=== PATIENT | male | born 1945 | race Caucasian/White ===

== ENCOUNTER 2021-10-21 17:12 | Inpatient (IN) | payer OTHER ==
[~2021-10-21] VITALS: Ht 167.6 cm; Wt 79.5 kg
[2021-10-21 17:58] LABS: BASOPHILS % 0.5 % (0.0-2.0); EOSINOPHILS % 5.3 % (0.0-5.0); HEMATOCRIT. 44.7 % (42.0-52.0); HEMOGLOBIN. 15.5 g/dL (14.0-18.0); LYMPHOCYTES % 27.6 % (20.0-50.0); MEAN CORPUSCULAR HEMOGLOBIN 30.8 pg (28.0-32.0); MEAN CORPUSCULAR VOLUME 89.1 fL (80.0-94.0); MONOCYTES % 5.6 % (2.0-8.0); PLATELET 196 x1000/uL (130-400); RED BLOOD CELL COUNT 5.02 mill/uL (4.7-6.1); RED CELL DISTRIBUTION WIDTH 12.7 % (11.6-14.6)
[2021-10-21 18:03] LABS: CHLORIDE 106 mEq/L (98-107)
[2021-10-22 09:00] VITALS: BP 133/76
[2021-10-22] MEDS ORDERED: LISINOPRIL 20MG TABLET PO SCH (09:00)
[2021-10-22 14:07] VITALS: BP 133/76
== END 2021-10-22 15:45 | disposition home or self-care (01) | DRG 305 ==
LOC: ER 17:12 → 8WST 10-22 01:46
PROVIDERS: ADMIT Internal Medicine Pulmonary Disease; ATTEND Internal Medicine Pulmonary Disease
DX: I16.0 Hypertensive urgency (principal); I10 Essential (primary) hypertension; Z20.822 Contact with and (suspected) exposure to COVID-19
CPT/HCPCS: 36415; 71045; 80053; 83880; 84484; 85025; 87426; 93005; 99285

== ENCOUNTER 2024-10-16 17:05 | Emergency (ER) | payer OTHER ==
[~2024-10-16] VITALS: Ht 167.6 cm; Wt 78.2 kg
[2024-10-16 17:14] VITALS: O2SAT 98
[2024-10-16] MEDS ORDERED: MECLIZINE 25MG TABLET PO ONE (18:00)
[2024-10-16 18:11] LABS: BASOPHILS % 0.4 % (0.0-2.0); EOSINOPHILS % 0.7 % (0.0-5.0); HEMATOCRIT. 47.6 % (42.0-52.0); HEMOGLOBIN. 16.6 g/dL (14.0-18.0); LYMPHOCYTES % 26.3 % (20.0-50.0); MEAN CORPUSCULAR HEMOGLOBIN 31.2 pg (28.0-32.0); MEAN CORPUSCULAR HGB CONC 34.9 g/dL (31.0-37.0); MEAN CORPUSCULAR VOLUME 89.5 fL (80.0-94.0); MEAN PLATELET VOLUME 8.6 fl (7.4-10.4); MONOCYTES % 5.6 % (2.0-8.0); PLATELET 316 x1000/uL (130-400); RED BLOOD CELL COUNT 5.32 mill/uL (4.7-6.1); RED CELL DISTRIBUTION WIDTH 13.1 % (11.6-14.6); WHITE BLOOD COUNT 7.3 x1000/uL (4.5-11.0)
[2024-10-16 18:19] LABS: CARBON DIOXIDE 28 mEq/L (21-32); CHLORIDE 100 mEq/L (98-107); POTASSIUM 4.2 mEq/L (3.5-5.1); SODIUM 140 mEq/L (136-145)
[2024-10-16 18:20] LABS: CALCIUM 10.5 mg/dL (8.7-10.4)
[2024-10-16 18:24] LABS: CREATININE 1.1 mg/dL (0.6-1.3); GLUCOSE 220 mg/dL (70-105); TROPONIN I HIGH SENSITIVITY 7 ng/L (3.0-53)
[2024-10-16 18:25] LABS: UREA NITROGEN BLOOD 17 mg/dL (9-23)
[2024-10-16 18:26] LABS: ALANINE AMINOTRANSFERASE 33 IU/L (10-49); ALBUMIN 4.9 g/dL (3.2-4.8); ASPARTATE AMINOTRANSFERASE 24 IU/L (<34)
[2024-10-16 18:27] LABS: BILIRUBIN TOTAL 0.7 mg/dL (0.1-1.0)
[2024-10-16] MEDS: MECLIZINE 25MG TABLET PO NR (18:28)
[2024-10-16] MEDS ORDERED: AMLODIPINE 10MG TABLET PO ONE (20:15)
[2024-10-16] MEDS: AMLODIPINE 5MG TABLET PO NR (20:15)
[2024-10-16 21:28] VITALS: BP 170/82; PULSE 56; RESP 16; TEMP 36.7; O2SAT 98
== END 2024-10-16 22:01 | disposition home or self-care (01) ==
LOC: ER 17:18
DX: I16.0 Hypertensive urgency (principal); I10 Essential (primary) hypertension; Z98.890 Other specified postprocedural states
CPT/HCPCS: 99285; 70450; 71045; 80053; 85025; 84484; 36415; 93005; J8597

== ENCOUNTER 2025-01-03 09:45 | Inpatient (IN) | payer OTHER, MEDICARE ==
[~2025-01-03] VITALS: Ht 172.7 cm; Wt 80.3 kg
[2025-01-03] MEDS: VANCOMYCIN 1000MG/250ML 250 ML IV STA (09:58)
[2025-01-03] MEDS: LEVETIRACETAM 500MG PREMIX 100 ML IV ONE (09:58)
[2025-01-03] MEDS: LACTATED RINGERS 2,000 ML IV SCH (09:58)
[2025-01-03] MEDS ORDERED: VANCOMYCIN 1000MG/250ML 250 ML IV SCH (10:00)
[2025-01-03] MEDS ORDERED: LEVETIRACETAM 500MG PREMIX 100 ML IV ONE (10:00)
[2025-01-03] MEDS ORDERED: CEFEPIME 2GM IN DEXT 5% 100ML IV ONE (10:00)
[2025-01-03 10:04] LABS: BASOPHILS % 0.4 % (0.0-2.0); EOSINOPHILS % 0.3 % (0.0-5.0); HEMATOCRIT. 48.8 % (42.0-52.0); HEMOGLOBIN. 16.7 g/dL (14.0-18.0); LYMPHOCYTES % 28.8 % (20.0-50.0); MEAN CORPUSCULAR HEMOGLOBIN 30.7 pg (28.0-32.0); MEAN CORPUSCULAR HGB CONC 34.2 g/dL (31.0-37.0); MEAN CORPUSCULAR VOLUME 89.8 fL (80.0-94.0); MEAN PLATELET VOLUME 8.6 fl (7.4-10.4); MONOCYTES % 14.2 % (2.0-8.0); NEUTROPHILS % 56.3 % (40.0-76.0); PLATELET 329 x1000/uL (130-400); RED BLOOD CELL COUNT 5.43 mill/uL (4.7-6.1); RED CELL DISTRIBUTION WIDTH 15.1 % (11.6-14.6); WHITE BLOOD COUNT 15.8 x1000/uL (4.5-11.0)
[2025-01-03] MEDS: CEFEPIME 2GM/50ML DUPLEX 50 ML IV NR (10:47)
[2025-01-03] MEDS: LEVETIRACETAM 500MG PREMIX 100 ML IV NR (11:05)
[2025-01-03 11:10] LABS: CARBON DIOXIDE 21 mEq/L (21-32); CHLORIDE 101 mEq/L (98-107); POTASSIUM 3.9 mEq/L (3.5-5.1); SODIUM 139 mEq/L (136-145)
[2025-01-03 11:11] LABS: CALCIUM 8.6 mg/dL (8.7-10.4)
[2025-01-03 11:16] LABS: CREATININE 1.2 mg/dL (0.6-1.3); GLUCOSE 224 mg/dL (70-105); TROPONIN I HIGH SENSITIVITY 9 ng/L (3.0-53); UREA NITROGEN BLOOD 14 mg/dL (9-23)
[2025-01-03 11:17] LABS: ALANINE AMINOTRANSFERASE 25 IU/L (10-49); ASPARTATE AMINOTRANSFERASE 19 IU/L (<34)
[2025-01-03 11:18] LABS: BILIRUBIN DIRECT 0.3 mg/dL (<=3.0); BILIRUBIN TOTAL 0.8 mg/dL (0.1-1.0); PROTEIN TOTAL 6.3 g/dL (6.0-8.3)
[2025-01-03 11:20] LABS: INR 1.1; PROTHROMBIN TIME 11.9 sec (9.6-11.0)
[2025-01-03] MEDS: VANCOMYCIN 1GM/200ML PMX (BAXTER) IV NR ×2 (11:30→17:47)
[2025-01-03 11:47] LABS: LACTIC ACID 9.9 mmol/L (0.4-2.0)
[2025-01-03] MEDS ORDERED: ACETAMINOPHEN 325MG TABLET PO ONE (12:15)
[2025-01-03] MEDS ORDERED: VANCOMYCIN 1GM/200ML PMX (BAXTER) IV NR (12:15)
[2025-01-03] MEDS: LACTATED RINGERS 100 ML IV SCH (12:24)
[2025-01-03] MEDS: ACETAMINOPHEN 1000MG/100ML 100 ML IV ONE (12:51)
[2025-01-03 13:00] VITALS: BP 143/65; PULSE 64; RESP 20; TEMP 37.8
[2025-01-03] MEDS: AMLODIPINE 10MG TABLET PO SCH (13:00)
[2025-01-03] MEDS ORDERED: ONDANSETRON HCL 4MG/2ML INJ IV PRN (13:00)
[2025-01-03] MEDS ORDERED: LORAZEPAM 2MG/ML UD SYRINGE IV PRN (13:00)
[2025-01-03 13:23] LABS: TROPONIN I HIGH SENSITIVITY 20 ng/L (3.0-53)
[2025-01-03 14:00] VITALS: BP 143/77; PULSE 76; RESP 24; O2SAT 99
[2025-01-03 15:15] LABS: BG BASE EXCESS 1.6 mmol/L (-2.0-3.0); BG CARBOXYHEMOGLOBIN 0.2 % (0.5-1.5); BG DEOXYHEMOGLOBIN 1.4 % (0.0-5.0); BG FRACTION INSPIRED OXYGEN 36; BG HCO3 ACT 27.5 mmol/L (21.0-28.0); BG METHEMOGLOBIN 0.1 % (0.5-1.5); BG OXYGEN SATURATION 98.6 % (94.0-98.0); BG OXYHEMOGLOBIN 98.3 % (94.0-98.0); BG PCO2 47.7 mmHg (35.0-48.0); BG PH 7.378 (7.350-7.450); BG PO2 131.8 mmHg (83.0-108.0); BG SAMPLE SITE RIGHT RADIAL; BG TOTAL HEMOGLOBIN 14.2 g/dL (13.5-17.5); BG VENT MODE NASAL CANNULA
[2025-01-03 16:00] VITALS: BP 151/75; PULSE 67; RESP 19; TEMP 37.8; O2SAT 99
[2025-01-03] MEDS: SODIUM CHLORIDE 0.9% 1,000 ML IV SCH (17:47)
[2025-01-03 18:00] VITALS: BP 163/69; PULSE 68; RESP 23; O2SAT 98
[2025-01-03 20:00] VITALS: BP 162/70; PULSE 77; RESP 27; TEMP 38; O2SAT 97
[2025-01-03] MEDS: HYDRALAZINE 20MG/ML VIAL IV PRN (20:30)
[2025-01-03] MEDS: LEVETIRACETAM 500MG PREMIX 100 ML IV SCH (21:11)
[2025-01-03] MEDS ORDERED: NALOXONE HCL 0.4MG/ML VIAL IV PRN (21:30)
[2025-01-03] MEDS: MORPHINE SULFATE 2 MG/ML INJ (NOT FOR IM USE) IV PRN (21:30)
[2025-01-03 22:00] VITALS: BP 155/56; PULSE 90; RESP 28; O2SAT 97
[2025-01-03 22:27] LABS: AMMONIA 65 uMol/L (<32)
[2025-01-03] MEDS: THIAMINE HCL 100 MG in SODIUM CHLORIDE 0.9% 49 ML IV NR (22:30)
[2025-01-04] VITALS (11 sets, daily range): BP systolic 130–163; BP diastolic 64–78; PULSE 75–90; RESP 23–30; TEMP 37.3–38.6; O2SAT 93–98
[2025-01-04] MEDS: CEFTRIAXONE 1GM/50ML 100 ML IV SCH (02:00)
[2025-01-04] MEDS: AMPICILLIN 2,000 MG in SODIUM CHLORIDE 0.9% 100 ML IV SCH (02:03)
[2025-01-04] MEDS: WATER IV SCH ×2 (03:43→18:21)
[2025-01-04] MEDS: ACYCLOVIR IV SCH ×2 (03:43→18:21)
[2025-01-04] MEDS: DEXT 5% IV SCH ×2 (03:43→18:21)
[2025-01-04] MEDS ORDERED: MELO-106 PO (04:52)
[2025-01-04] MEDS ORDERED: DOXY100C5 MT (04:52)
[2025-01-04] MEDS ORDERED: GABA-1180 PO (04:52)
[2025-01-04] MEDS ORDERED: MECL-299 PO (04:52)
[2025-01-04] MEDS ORDERED: LORA10TA7 PO (04:52)
[2025-01-04] MEDS ORDERED: LISI10TA26 PO (04:52)
[2025-01-04] MEDS ORDERED: BUDE1AMP2 INH (04:52)
[2025-01-04] MEDS ORDERED: VIT1CAPS47 PO (04:52)
[2025-01-04] MEDS ORDERED: BUDE10.26 (04:52)
[2025-01-04] MEDS ORDERED: OCUFLX EACHEYE (04:52)
[2025-01-04] MEDS ORDERED: FLUT15.844 BOTHNSTRLS (04:54)
[2025-01-04] MEDS ORDERED: *PATIENT'S OWN MEDICATION STORAGE XX SCH (05:30)
[2025-01-04 07:03] LABS: CHLORIDE 98 mEq/L (98-107); POTASSIUM 3.3 mEq/L (3.5-5.1); SODIUM 137 mEq/L (136-145)
[2025-01-04 07:04] LABS: CALCIUM 8.7 mg/dL (8.7-10.4); CARBON DIOXIDE 27 mEq/L (21-32)
[2025-01-04 07:09] LABS: GLUCOSE 177 mg/dL (70-105); UREA NITROGEN BLOOD 13 mg/dL (9-23)
[2025-01-04 07:14] LABS: BASOPHILS % 0.2 % (0.0-2.0); EOSINOPHILS % 0.6 % (0.0-5.0); HEMATOCRIT. 41.7 % (42.0-52.0); HEMOGLOBIN. 14.2 g/dL (14.0-18.0); LYMPHOCYTES % 10.3 % (20.0-50.0); MEAN CORPUSCULAR HEMOGLOBIN 30.5 pg (28.0-32.0); MEAN CORPUSCULAR VOLUME 89.6 fL (80.0-94.0); MEAN PLATELET VOLUME 8.5 fl (7.4-10.4); MONOCYTES % 14.2 % (2.0-8.0); NEUTROPHILS % 74.7 % (40.0-76.0); PLATELET 235 x1000/uL (130-400); RED BLOOD CELL COUNT 4.66 mill/uL (4.7-6.1); RED CELL DISTRIBUTION WIDTH 13.5 % (11.6-14.6); WHITE BLOOD COUNT 8.2 x1000/uL (4.5-11.0)
[2025-01-04 08:40] LABS: CLARITY URINE CLOUDY (CLEAR); COLOR URINE YELLOW (YELLOW); GLUCOSE URINE NEGATIVE (NEGATIVE); KETONES URINE 1+ (NEGATIVE); LEUKOCYTE ESTERASE URINE NEGATIVE (NEGATIVE); NITRITE URINE NEGATIVE (NEGATIVE); OCCULT BLOOD URINE NEGATIVE (NEGATIVE); PH URINE 5.5 (4.5-8.0); PROTEIN URINE 1+ (NEGATIVE); SPECIFIC GRAVITY URINE 1.026 (1.005-1.030)
[2025-01-04 09:08] LABS: SQUAMOUS EPITHELIAL CELL URINE RARE /lpf (RARE/1+)
[2025-01-04 09:11] LABS: RBC URINE 0-2 /hpf (0-2); WBC URINE 0-2 /hpf (0-2)
[2025-01-04 09:12] LABS: BACTERIA URINE TRACE
[2025-01-04] MEDS: ACETAMINOPHEN 650MG SUPP PR PRN (10:02)
[2025-01-04] MEDS: CEFTRIAXONE 2GM/50ML 50 ML IV SCH (10:36)
[2025-01-04] MEDS: KCL 20MEQ/100ML PREMIX 100 ML IV SCH (10:45)
[2025-01-04] MEDS ORDERED: CEFTRIAXONE 1GM/50ML 50 ML IV SCH (11:00)
[2025-01-04] MEDS ORDERED: IOHEXOL-300 100 ML BOTTLE ONE (12:08)
[2025-01-04] MEDS ORDERED: LIDOCAINE HCL 1% 10 MG/ML 10ML VIAL ONE (12:43)
[2025-01-04 14:19] LABS: CSF APPEARANCE CLEAR (CLEAR)
[2025-01-04] MEDS: MORPHINE SULFATE 2 MG/ML INJ (NOT FOR IM USE) IV PRN (14:38)
[2025-01-04 15:07] LABS: CSF WHITE BLOOD CELL 24 /cu mm (0-10)
[2025-01-04] MEDS: AMPICILLIN 2GM/100ML 100 ML IV SCH (18:10)
[2025-01-04] MEDS: VANCOMYCIN 1.25GM/250ML IV SCH (20:31)
[2025-01-05] VITALS (13 sets, daily range): BP systolic 72–167; BP diastolic 41–83; PULSE 81–104; RESP 17–28; TEMP 36.4–37.2; O2SAT 91–98
[2025-01-05] MEDS: HYDRALAZINE 20MG/ML VIAL IV NR ×2 (06:47→11:36)
[2025-01-05 07:01] LABS: CHLORIDE 98 mEq/L (98-107); POTASSIUM 3.4 mEq/L (3.5-5.1); SODIUM 137 mEq/L (136-145)
[2025-01-05 07:02] LABS: CARBON DIOXIDE 29 mEq/L (21-32)
[2025-01-05 07:03] LABS: CALCIUM 8.8 mg/dL (8.7-10.4)
[2025-01-05 07:07] LABS: GLUCOSE 174 mg/dL (70-105); UREA NITROGEN BLOOD 15 mg/dL (9-23)
[2025-01-05] MEDS: VANCOMYCIN 1GM PMX (XELLIA) 200 ML IV SCH (15:00)
[2025-01-06] VITALS (12 sets, daily range): BP systolic 132–171; BP diastolic 53–85; PULSE 65–91; RESP 14–22; TEMP 36.8–37; O2SAT 89–100
[2025-01-06 08:28] LABS: CARBON DIOXIDE 30 mEq/L (21-32); CHLORIDE 100 mEq/L (98-107); POTASSIUM 3.4 mEq/L (3.5-5.1); SODIUM 142 mEq/L (136-145)
[2025-01-06 08:30] LABS: CALCIUM 8.7 mg/dL (8.7-10.4)
[2025-01-06 08:34] LABS: CREATININE 0.8 mg/dL (0.6-1.3); GLUCOSE 158 mg/dL (70-105); UREA NITROGEN BLOOD 16 mg/dL (9-23)
[2025-01-06 08:49] LABS: HEMATOCRIT. 38.4 % (42.0-52.0); MEAN CORPUSCULAR HEMOGLOBIN 30.3 pg (28.0-32.0); MEAN CORPUSCULAR HGB CONC 33.8 g/dL (31.0-37.0); MEAN CORPUSCULAR VOLUME 89.6 fL (80.0-94.0); PLATELET 253 x1000/uL (130-400); RED BLOOD CELL COUNT 4.29 mill/uL (4.7-6.1); RED CELL DISTRIBUTION WIDTH 13.4 % (11.6-14.6)
[2025-01-06 08:53] LABS: DIFFERENTIAL COMMENT 1
[2025-01-06] MEDS: ACETAMINOPHEN 325MG TABLET PO PRN (09:34)
[2025-01-06 10:01] LABS: PLATELET ESTIMATE NORMAL
[2025-01-06] MEDS ORDERED: POTASSIUM CHLORIDE 20 MEQ in DEXT 5% WATER 90 ML IV ONE (14:15)
[2025-01-06] MEDS: KCL 20MEQ/100ML PREMIX 100 ML IV NR (15:30)
[2025-01-07] VITALS (12 sets, daily range): BP systolic 99–176; BP diastolic 53–100; PULSE 68–86; RESP 13–20; TEMP 36.7–37.2; O2SAT 95–99
[2025-01-07 03:05] LABS: BASOPHILS % 0.5 % (0.0-2.0); EOSINOPHILS % 2.3 % (0.0-5.0); HEMATOCRIT. 38.7 % (42.0-52.0); HEMOGLOBIN. 13.3 g/dL (14.0-18.0); LYMPHOCYTES % 9.2 % (20.0-50.0); MEAN CORPUSCULAR HEMOGLOBIN 30.2 pg (28.0-32.0); MEAN CORPUSCULAR HGB CONC 34.3 g/dL (31.0-37.0); MEAN CORPUSCULAR VOLUME 88.2 fL (80.0-94.0); MEAN PLATELET VOLUME 7.6 fl (7.4-10.4); MONOCYTES % 10.9 % (2.0-8.0); NEUTROPHILS % 77.1 % (40.0-76.0); PLATELET 254 x1000/uL (130-400); RED BLOOD CELL COUNT 4.39 mill/uL (4.7-6.1); RED CELL DISTRIBUTION WIDTH 13.2 % (11.6-14.6); WHITE BLOOD COUNT 9.1 x1000/uL (4.5-11.0)
[2025-01-07 03:08] LABS: CHLORIDE 101 mEq/L (98-107); SODIUM 140 mEq/L (136-145)
[2025-01-07 03:09] LABS: CALCIUM 8.5 mg/dL (8.7-10.4); CARBON DIOXIDE 31 mEq/L (21-32)
[2025-01-07 03:14] LABS: CREATININE 0.8 mg/dL (0.6-1.3); GLUCOSE 186 mg/dL (70-105); UREA NITROGEN BLOOD 14 mg/dL (9-23)
[2025-01-07] MEDS: POTASSIUM CHLORIDE 20MEQ TABLET SR PO NR (09:00)
[2025-01-08] VITALS (13 sets, daily range): BP systolic 118–168; BP diastolic 60–91; PULSE 72–91; RESP 14–20; TEMP 36.6–37.1; O2SAT 95–99
[2025-01-08] MEDS: KCL 20MEQ/100ML PREMIX 100 ML IV NR (08:56)
[2025-01-08 09:10] LABS: BASOPHILS % 0.4 % (0.0-2.0); EOSINOPHILS % 2.7 % (0.0-5.0); HEMATOCRIT. 40.2 % (42.0-52.0); HEMOGLOBIN. 13.8 g/dL (14.0-18.0); LYMPHOCYTES % 12.6 % (20.0-50.0); MEAN CORPUSCULAR HEMOGLOBIN 30.2 pg (28.0-32.0); MEAN CORPUSCULAR HGB CONC 34.3 g/dL (31.0-37.0); MEAN CORPUSCULAR VOLUME 88.1 fL (80.0-94.0); MEAN PLATELET VOLUME 7.6 fl (7.4-10.4); MONOCYTES % 9.9 % (2.0-8.0); NEUTROPHILS % 74.4 % (40.0-76.0); PLATELET 325 x1000/uL (130-400); RED BLOOD CELL COUNT 4.56 mill/uL (4.7-6.1); RED CELL DISTRIBUTION WIDTH 13.2 % (11.6-14.6); WHITE BLOOD COUNT 9.3 x1000/uL (4.5-11.0)
[2025-01-08 09:26] LABS: CARBON DIOXIDE 32 mEq/L (21-32); CHLORIDE 99 mEq/L (98-107); POTASSIUM 2.9 mEq/L (3.5-5.1); SODIUM 140 mEq/L (136-145)
[2025-01-08 09:27] LABS: CALCIUM 8.9 mg/dL (8.7-10.4)
[2025-01-08 09:31] LABS: CREATININE 0.8 mg/dL (0.6-1.3)
[2025-01-08 09:32] LABS: GLUCOSE 184 mg/dL (70-105); UREA NITROGEN BLOOD 10 mg/dL (9-23)
[2025-01-08] MEDS: KCL 20MEQ/100ML PREMIX 100 ML IV SCH (17:55)
[2025-01-08] MEDS: MAGNESIUM 1 G PREMIX 100 ML IV NR (18:33)
[2025-01-09] VITALS (12 sets, daily range): BP systolic 133–161; BP diastolic 59–143; PULSE 72–88; RESP 10–20; TEMP 36.7–37; O2SAT 91–99
[2025-01-09 06:35] LABS: CARBON DIOXIDE 32 mEq/L (21-32); CHLORIDE 102 mEq/L (98-107); SODIUM 141 mEq/L (136-145)
[2025-01-09 06:36] LABS: CALCIUM 8.9 mg/dL (8.7-10.4)
[2025-01-09 06:40] LABS: CREATININE 0.9 mg/dL (0.6-1.3)
[2025-01-09 06:41] LABS: GLUCOSE 214 mg/dL (70-105); UREA NITROGEN BLOOD 8 mg/dL (9-23)
[2025-01-09 06:43] LABS: BASOPHILS % 0.4 % (0.0-2.0); EOSINOPHILS % 2.1 % (0.0-5.0); HEMATOCRIT. 40.7 % (42.0-52.0); HEMOGLOBIN. 13.9 g/dL (14.0-18.0); LYMPHOCYTES % 12.5 % (20.0-50.0); MEAN CORPUSCULAR HEMOGLOBIN 30.3 pg (28.0-32.0); MEAN CORPUSCULAR HGB CONC 34.2 g/dL (31.0-37.0); MEAN CORPUSCULAR VOLUME 88.5 fL (80.0-94.0); MEAN PLATELET VOLUME 7.5 fl (7.4-10.4); MONOCYTES % 9.6 % (2.0-8.0); NEUTROPHILS % 75.4 % (40.0-76.0); PLATELET 304 x1000/uL (130-400); RED BLOOD CELL COUNT 4.59 mill/uL (4.7-6.1); RED CELL DISTRIBUTION WIDTH 12.9 % (11.6-14.6); WHITE BLOOD COUNT 7.3 x1000/uL (4.5-11.0)
[2025-01-09] MEDS ORDERED: POTASSIUM CHLORIDE 20MEQ TABLET SR PO SCH (08:45)
[2025-01-09] MEDS: POTASSIUM CHLORIDE 20MEQ/PACKET PO NR (09:55)
[2025-01-10] VITALS (11 sets, daily range): BP systolic 140–185; BP diastolic 56–95; PULSE 67–96; RESP 13–21; TEMP 36.1–37.1; O2SAT 91–98
[2025-01-10 06:45] LABS: CALCIUM 9.1 mg/dL (8.7-10.4); CARBON DIOXIDE 32 mEq/L (21-32); CHLORIDE 102 mEq/L (98-107); POTASSIUM 3.3 mEq/L (3.5-5.1); SODIUM 143 mEq/L (136-145)
[2025-01-10 06:51] LABS: BASOPHILS % 0.3 % (0.0-2.0); CREATININE 0.9 mg/dL (0.6-1.3); EOSINOPHILS % 2.2 % (0.0-5.0); GLUCOSE 170 mg/dL (70-105); HEMATOCRIT. 40.6 % (42.0-52.0); HEMOGLOBIN. 13.7 g/dL (14.0-18.0); LYMPHOCYTES % 13.4 % (20.0-50.0); MEAN CORPUSCULAR HGB CONC 33.7 g/dL (31.0-37.0); MEAN CORPUSCULAR VOLUME 89.2 fL (80.0-94.0); MEAN PLATELET VOLUME 8.1 fl (7.4-10.4); MONOCYTES % 8.5 % (2.0-8.0); NEUTROPHILS % 75.6 % (40.0-76.0); PLATELET 328 x1000/uL (130-400); RED BLOOD CELL COUNT 4.55 mill/uL (4.7-6.1); RED CELL DISTRIBUTION WIDTH 12.9 % (11.6-14.6); UREA NITROGEN BLOOD 7 mg/dL (9-23); WHITE BLOOD COUNT 9.1 x1000/uL (4.5-11.0)
[2025-01-10] MEDS: ENOXAPARIN 40MG/0.4ML SYR SUBCUT SCH (08:47)
[2025-01-10] MEDS: KCL 20MEQ/100ML PREMIX 100 ML IV SCH (11:52)
[2025-01-11] VITALS (12 sets, daily range): BP systolic 119–181; BP diastolic 49–136; PULSE 75–94; RESP 12–20; TEMP 36.2–37; O2SAT 20–99
[2025-01-11 06:07] LABS: BASOPHILS % 0.3 % (0.0-2.0); EOSINOPHILS % 2.7 % (0.0-5.0); HEMATOCRIT. 40.4 % (42.0-52.0); HEMOGLOBIN. 13.8 g/dL (14.0-18.0); LYMPHOCYTES % 15.7 % (20.0-50.0); MEAN CORPUSCULAR HEMOGLOBIN 30.3 pg (28.0-32.0); MEAN CORPUSCULAR HGB CONC 34.2 g/dL (31.0-37.0); MEAN CORPUSCULAR VOLUME 88.8 fL (80.0-94.0); MEAN PLATELET VOLUME 7.8 fl (7.4-10.4); MONOCYTES % 8.3 % (2.0-8.0); PLATELET 360 x1000/uL (130-400); RED BLOOD CELL COUNT 4.55 mill/uL (4.7-6.1); WHITE BLOOD COUNT 8.6 x1000/uL (4.5-11.0)
[2025-01-11 06:09] LABS: CARBON DIOXIDE 30 mEq/L (21-32); CHLORIDE 104 mEq/L (98-107); POTASSIUM 3.3 mEq/L (3.5-5.1); SODIUM 142 mEq/L (136-145)
[2025-01-11 06:10] LABS: CALCIUM 9.1 mg/dL (8.7-10.4)
[2025-01-11 06:15] LABS: CREATININE 0.9 mg/dL (0.6-1.3); GLUCOSE 172 mg/dL (70-105); UREA NITROGEN BLOOD 8 mg/dL (9-23)
[2025-01-11] MEDS ORDERED: DEXTROSE 50% WATER 50ML SYRINGE IV PRN (14:30)
[2025-01-11] MEDS: POTASSIUM CHLORIDE 20MEQ TABLET SR PO NR (16:05)
[2025-01-11] MEDS: BLOOD SUGAR DIAGNOSTIC STRIP TEST SCH (17:46)
[2025-01-11] MEDS: INSULIN LISPRO 100 UNITS/ML SUBCUT SCH (17:46)
[2025-01-12] VITALS (11 sets, daily range): BP systolic 93–162; BP diastolic 44–74; PULSE 73–96; RESP 10–20; TEMP 27.8–36.8; O2SAT 91–96
[2025-01-12 06:50] LABS: BASOPHILS % 0.4 % (0.0-2.0); EOSINOPHILS % 2.7 % (0.0-5.0); HEMOGLOBIN. 13.6 g/dL (14.0-18.0); MEAN CORPUSCULAR HEMOGLOBIN 30.3 pg (28.0-32.0); MEAN CORPUSCULAR HGB CONC 34.1 g/dL (31.0-37.0); MEAN CORPUSCULAR VOLUME 88.8 fL (80.0-94.0); MEAN PLATELET VOLUME 7.8 fl (7.4-10.4); MONOCYTES % 8.5 % (2.0-8.0); NEUTROPHILS % 72.4 % (40.0-76.0); PLATELET 377 x1000/uL (130-400); RED CELL DISTRIBUTION WIDTH 13.1 % (11.6-14.6); WHITE BLOOD COUNT 9.3 x1000/uL (4.5-11.0)
[2025-01-12 07:01] LABS: CHLORIDE 106 mEq/L (98-107); POTASSIUM 3.3 mEq/L (3.5-5.1); SODIUM 143 mEq/L (136-145)
[2025-01-12 07:02] LABS: CARBON DIOXIDE 28 mEq/L (21-32)
[2025-01-12 07:07] LABS: CREATININE 0.9 mg/dL (0.6-1.3); GLUCOSE 150 mg/dL (70-105); UREA NITROGEN BLOOD 9 mg/dL (9-23)
[2025-01-12] MEDS ORDERED: VALA100044 MT (17:03)
[2025-01-12] MEDS: POTASSIUM CHLORIDE 20MEQ TABLET SR PO SCH (20:11)
[2025-01-13] MEDS ORDERED: VANCOMYCIN 1G PREMIX 200 ML IV SCH (06:00)
== END 2025-01-12 21:05 | DRG 871 ==
LOC: ER 09:45 → 5EST 12:08 → EDBEDREQ 12:11 → EDBEDREQSVC 12:11 → EDBEDREQTM 12:11 → 6WST 01-12 12:37
PROVIDERS: ADMIT Internal Medicine; ATTEND Internal Medicine
PROC: 009U3ZX Drainage of Spinal Canal, Percutaneous Approach, Diagnostic (ICD-10-PCS; principal; 2025-01-04)
PROC: B01B1ZZ Fluoroscopy of Spinal Cord using Low Osmolar Contrast (ICD-10-PCS; 2025-01-04)
PROC: 4A00X4Z Measurement of Central Nervous Electrical Activity, External Approach (ICD-10-PCS; 2025-01-04)
DX: A41.9 Sepsis, unspecified organism (principal); D67 Hereditary factor IX deficiency; J96.01 Acute respiratory failure with hypoxia; G92.8 Other toxic encephalopathy; N18.6 End stage renal disease; G04.81 Other encephalitis and encephalomyelitis; I13.2 Hypertensive heart and chronic kidney disease with heart failure and with stage 5 chronic kidney disease, or end stage renal disease; R65.20 Severe sepsis without septic shock; G40.909 Epilepsy, unspecified, not intractable, without status epilepticus; I50.9 Heart failure, unspecified; E87.6 Hypokalemia; N41.9 Inflammatory disease of prostate, unspecified; D64.9 Anemia, unspecified; G35 Multiple sclerosis; E11.65 Type 2 diabetes mellitus with hyperglycemia; Z90.49 Acquired absence of other specified parts of digestive tract
CPT/HCPCS: 36415; 36600; 62328; 70551; 71045; 74177; 76700; 80048; 80076; 80202; 81003; 82140; 82375; 82805; 82962; 83036; 83605; 83735; 84132; 84145; 84484; 85025; 87070; 93005; 95816; 97110; 97116; 97162; 97530; 99291; A4606; J0133; J0290; J0360; J0692; J0696; J1650; J1815; J1953; J2003; J2270; J3370; J3411; J3475; J3480; J7030; J7050; J7060; Q9967; J0131